=== PATIENT | male | born 1995 | race Two or more races ===

== ENCOUNTER 2022-12-28 08:38 | Emergency (ER) | payer OTHER ==
[~2022-12-28] VITALS: Ht 172.7 cm; Wt 113.4 kg
[2022-12-28] MEDS ORDERED: CIPRO500 MG PO (11:15)
[2022-12-28] MEDS ORDERED: DICLOFENAC SODI75 MG PO (11:15)
== END 2022-12-28 11:38 | disposition home or self-care (01) ==
LOC: ER 08:38
PROVIDERS: General Practice
DX: N45.1 Epididymitis (principal); N50.812 Left testicular pain; Z88.8 Allergy status to other drugs, medicaments and biological substances